=== PATIENT | female | born 1975 | race Caucasian/White ===

== ENCOUNTER 2016-11-17 00:23 | Emergency (ER) | payer SELFPAY ==
[2016-11-17] MEDS ORDERED: Ketorolac Tromethamine 60 MG/2 ML VIAL ONE (00:57)
== END 2016-11-17 01:20 | disposition home or self-care (01) ==
LOC: SCSER 00:23
DX: K08.89 Other specified disorders of teeth and supporting structures (principal); F17.210 Nicotine dependence, cigarettes, uncomplicated; Z79.899 Other long term (current) drug therapy
CPT/HCPCS: 96372; J1885

== ENCOUNTER 2017-03-05 21:36 | Emergency (ER) | payer SELFPAY ==
[2017-03-05] MEDS ORDERED: Nitroglycerin 2% Ointment 1 INCH/1 GM Packet ONE (22:15)
[2017-03-05 22:19] LABS: #Basophils 0.1 thou/uL (0.0-0.2); #Eosinphils 0.4 thou/uL (0.0-0.7); #Lymphocytes 2.8 thou/uL (1.20-3.40); #Monocytes 0.5 thou/uL (0.11-0.59); #Neutrophils 4.2 thou/uL (1.40-6.50); %Basophils 1.5 % (0.0-1.0); %Eosinophils 5.2 % (0.0-10.0); %Lymphocytes 34.7 % (21.0-51.0); %Monocytes 5.8 % (0.0-10.0); %Neutrophils 52.8 % (42.0-75.0); Hemoglobin 12.2 g/dL (12.0-16.0); Mean Corpuscular HGB CONC 31.3 g/dL (32.0-36.0); Mean Corpuscular Hemoglobin 28.2 pg (27.0-31.0); Mean Corpuscular Volume 90.2 fl (81.0-99.0); Mean Platelet Volume 9.9 fL (7.4-10.4); Platelet Count 197 thou/uL (130-400); RBC Distribution Width 11.7 % (11.5-14.5); Red Blood Cell (RBC) Count 4.31 mill/uL (4.20-5.40); White Blood Cell (WBC) Count 7.9 thou/uL (4.8-10.8)
--- NOTE | 2017-03-05 22:22 | RAD ---
PORTABLE CHEST 03/05/17 PROVIDED CLINICAL HISTORY: Chest pain. FINDINGS: Comparison is made with the study dated 06/14/16. The cardiac silhouette appears prominent, likely at least partially on the basis of portable techniqu e. No focal consolidation, pleural fluid or pneumothorax apparent. IMPRESSION: No evidence for an acute cardiopulmonary process. POS: [facility]
[2017-03-05] MEDS ORDERED: Lorazepam 2 MG/ML VIAL ONE (22:30)
[2017-03-05] MEDS ORDERED: Ondansetron HCl/PF 4 MG/2 ML Vial ONE ×2 (22:30→22:31)
[2017-03-05 22:35] LABS: ALT (SGPT) 14 U/L (8-55); AST (SGOT) 17 U/L (5-34); Albumin 4.1 g/dL (3.5-5.0); Alkaline Phosphatase 72 U/L (40-150); Anion Gap 14 mmol/L (10-20); BUN (Urea Nitrogen) 7 mg/dL (7.0-18.7); Bilirubin, Total 0.2 mg/dL (0.2-1.2); CK (CPK) 51 U/L (29-168); Calc. Creatinine Clearance 0 mL/min (70-130); Calcium 9.5 mg/dL (7.8-10.44); Carbon Dioxide 26 mmol/L (22-29); Chloride 104 mmol/L (98-107); Estimated GFR-MDRD 81; Globulin 3.6 g/dL (2.4-3.5); Glucose 109 mg/dL (70-105); Lipase 44 U/L (8-78); Potassium 3.5 mmol/L (3.5-5.1); Protein, Total 7.7 g/dL (6.0-8.3); Sodium 140 mmol/L (136-145)
[2017-03-05 22:36] LABS: CKMB 0.5 ng/mL (0-6.6); Troponin I Less than 0.010 ng/mL (< 0.028)
[2017-03-05 22:38] LABS: BHCG - Serum Negative (NEGATIVE); Pregs Control Background? CLEAR/WHITE (CLR/WHITE); Pregs Control Bar Appear? YES (CONTROL BAR)
[2017-03-05 23:04] LABS: Thyroid Stimulating Hormone 2.4937 uIU/mL (0.35-4.94)
== END 2017-03-05 23:25 | disposition home or self-care (01) ==
LOC: SCSER 21:36
DX: R07.89 Other chest pain (principal); T50.905A Adverse effect of unspecified drugs, medicaments and biological substances, initial encounter; F17.210 Nicotine dependence, cigarettes, uncomplicated; Z79.899 Other long term (current) drug therapy
CPT/HCPCS: 71045; 80053; 82553; 83690; 84443; 84484; 84703; 85025; 93005; 96374; 96375; J2060; J2405

== ENCOUNTER 2017-10-21 16:26 | Emergency (ER) | payer SELFPAY ==
[~2017-10-21 16:26] MED LIST: Iopamidol 370 76% 100 ML VIAL ONE
[2017-10-21 18:21] LABS: #Basophils 0.1 thou/uL (0.0-0.2); #Eosinphils 0.4 thou/uL (0.0-0.7); #Lymphocytes 2.6 thou/uL (1.20-3.40); #Monocytes 0.5 thou/uL (0.11-0.59); #Neutrophils 4.9 thou/uL (1.40-6.50); %Basophils 1.1 % (0.0-1.0); %Eosinophils 4.5 % (0.0-10.0); %Lymphocytes 30.4 % (21.0-51.0); %Neutrophils 57.9 % (42.0-75.0); Hemoglobin 12.9 g/dL (12.0-16.0); Mean Corpuscular HGB CONC 33.1 g/dL (32.0-36.0); Mean Corpuscular Hemoglobin 29.6 pg (27.0-31.0); Mean Corpuscular Volume 89.5 fL (78.0-98.0); Mean Platelet Volume 10.3 fL (7.4-10.4); Platelet Count 192 thou/uL (130-400); Red Blood Cell (RBC) Count 4.37 mill/uL (4.20-5.40); White Blood Cell (WBC) Count 8.5 thou/uL (4.8-10.8)
[2017-10-21 18:36] LABS: ALT (SGPT) 16 U/L (8-55); AST (SGOT) 17 U/L (5-34); Albumin 4.1 g/dL (3.5-5.0); Alkaline Phosphatase 76 U/L (40-150); Anion Gap 16 mmol/L (10-20); BUN (Urea Nitrogen) 6 mg/dL (7.0-18.7); Bilirubin, Total 0.3 mg/dL (0.2-1.2); Calc. Creatinine Clearance 0 mL/min (70-130); Calcium 9.9 mg/dL (7.8-10.44); Carbon Dioxide 23 mmol/L (22-29); Chloride 106 mmol/L (98-107); Estimated GFR-MDRD Greater than 90; Globulin 3.3 g/dL (2.4-3.5); Glucose 81 mg/dL (70-105); Lipase 33 U/L (8-78); Protein, Total 7.4 g/dL (6.0-8.3); Sodium 141 mmol/L (136-145)
[2017-10-21 18:37] LABS: CKMB 0.3 ng/mL (0-6.6); Troponin I Less than 0.010 ng/mL (< 0.028)
[2017-10-21] MEDS ORDERED: Ondansetron HCl/PF 4 MG/2 ML Vial ONE (19:10)
--- NOTE | 2017-10-21 19:29 | CT ---
CTA OF THE CHEST AND ABDOMEN WITH CONTRAST: 10/21/17 COMPARISON: None. HISTORY: Back pain between the shoulder blades that began a month ago but just began hurting worse lately. TECHNIQUE: Multiple contiguous axial images were obtained in a CTA of the chest and abdomen with contrast per rtic dissection protocol. 3D sagittal and coronal MIP reformats were performed. FINDINGS: The heart is normal in size without focal cardiac abnormality. No hilar or mediastinal lymphadenopath y are seen. The aorta is normal in caliber. There is no evidence of significant aneurysmal dilatation or dissection within the thoracic or abdominal aorta. No suspicious pulmonary nodules are seen in the lungs. No focal infiltrates are seen in the lungs. No pneumothorax or pleural effusions are seen. The liver, gallbladder, kidneys, adrenal glands, spleen, and pancreas are unremarkable. No free air, free fluid, or stranding changes are seen in the abdomen. The visualized large and small bowel are unremarkable. The appendix is normal. No abdominal adenopath y is seen. The celiac trunk, SMA and YUMIKO all appear patent. There is a single renal artery on each side without significant atherosclerotic disease. Mild degenerative changes are seen in the spine. The chest and abdominal wall soft tissues are unrema rkable. No abnormality seen in the soft tissues of the back. IMPRESSION: 1. No evidence of aortic dissection or aneurysmal dilatation. 2. No evidence of acute intrathoracic abnormality. 3. No evidence of acute intra-abdominal/pelvic abnormality. POS: [facility]
== END 2017-10-21 19:20 | disposition home or self-care (01) ==
LOC: SCSER 16:26
DX: M54.6 Pain in thoracic spine (principal); K21.9 Gastro-esophageal reflux disease without esophagitis; F17.210 Nicotine dependence, cigarettes, uncomplicated
CPT/HCPCS: 71275; 80053; 82553; 83690; 84484; 85025; 93005; 96374; J2405